=== PATIENT | male | born 1970 | race Caucasian/White ===

== ENCOUNTER 2017-05-22 22:01 | Emergency (ER) | payer BC ==
[~2017-05-22] VITALS: Ht 185.4 cm; Wt 95.3 kg
[2017-05-22 22:20] VITALS: BP 133/87
--- NOTE | 2017-05-22 22:27 | Emergency Room Report ---
History of Present Illness General Chief Complaint: Pain Source: Patient Present Illness HPI This is a 46-year-old male who presents with chief complaint of right wrist injury. He said he was on a ledge and fell on outstretched hand. Complaining of right wrist pain. Occur just prior to arrival. Pain is 10 out of 10. Worse with movement. He's been icing it down. No other injury. No head injury. No loss of consciousness. He is right-hand dominant. Allergies: Uncoded Allergies: SULFA (Allergy, Unknown, 05/22/17) Patient History Past Medical History: see triage record, old chart reviewed Past Surgical History: other Pertinent Family History: none Social History: Denies: drug use Immunizations: other Reviewed Nursing Documentation: PMH: Agreed, PSxH: Agreed Nursing Documentation-PMH Hx Cardiac Problems: No - HIV + Hx Hypertension: Yes Review of Systems Eye: Denies: blurred vision, eye pain ENT: Denies: ear pain, nose congestion, throat swelling Respiratory: Denies: cough, shortness of breath Cardiovascular: Denies: chest pain, palpitations Gastrointestinal: Denies: abdominal pain, diarrhea, nausea, vomiting Musculoskeletal: Reports: joint pain, joint swelling, Denies: back pain Skin: Denies: rash Neurological: Denies: headache, numbness Endocrine: Denies: increased thirst, increased urine Hematologic/Lymphatic: Denies: easy bruising All Other Systems: negative except mentioned in HPI Physical Exam Vital Signs Date Time Temp Pulse Resp B/P Pulse Ox O2 Delivery O2 Flow Rate FiO2 05/22/17 22:09 98.1 86 15 133/87 96 Room Air vitals normal Sp02 EP Interpretation: reviewed, normal General Appearance: well appearing, no apparent distress, alert Head: normocephalic, atraumatic Eyes: bilateral eye EOMI, bilateral eye PERRL ENT: hearing grossly normal, normal pharynx Neck: full range of motion, supple, no meningismus Respiratory: chest non-tender, lungs clear, normal breath sounds Cardiovascular #1: regular rate, rhythm, no murmur Gastrointestinal: normal bowel sounds, non tender, no mass, no organomegaly, no bruit, non-distended Musculoskeletal: back normal, gait/station normal, normal range of motion, other - Right wrist: Tender to palpation over the distal radius. Edema to that area. Radial pulse 2+. Sensation normal. Decreased range of motion secondary to pain. Psychiatric: mood/affect normal Skin: warm/dry Procedures Splinting Splinting : Consent: Verbal Location: Right wrist Splint: sugar-tong Pre-Proc Neuro Vasc Exam: normal Post-Proc Neuro Vasc Exam: normal Patient Tolerated: Well Complications: None Medical Decision Making Diagnostic Impression: Primary Impression: Closed fracture distal radius and ulna Qualified Codes: S52.501A - Unspecified fracture of the lower end of right radius, initial encounter for closed fracture; S52.601A - Unspecified fracture of lower end of right ulna, initial encounter for closed fracture ER Course Patient presents with a distal radius and ulnar fracture. He will probably need surgery. No evidence of compartment syndrome. No evidence of neurovascular injury. We'll discharge home with close orthopedic followup. Other X-Ray Diagnostic Results Other X-Ray Diagnostic Results : X-Ray ordered: Right wrist # of Views/Limited Vs Complete: 4 View Indication: Pain EP Interpretation: Yes Interpretation: other - Comminuted intra-articular fracture of the distal radius. Styloid fracture of the distal ulnar. Impression: Other - distal radius and ulna frx Interpreting ER Provider: Electronically signed by Arnoldo Chirinos MD Last Vital Signs Date Time Temp Pulse Resp B/P Pulse Ox O2 Delivery O2 Flow Rate FiO2 05/22/17 22:09 98.1 86 15 133/87 96 Room Air Status: improved Disposition: HOME, SELF-CARE Condition: Stable Scripts Hydrocodone/Acetaminophen 5-325* (HYDROCODONE/ACETAMINOPHEN 5-325*) 1 Each Tablet 1 TAB ORAL Q6H Y for For Pain, #30 TAB 0 Refills Prov: ARNOLDO CHIRINOS M.D. 05/22/17 Additional Instructions: Call orthopedic tomorrow for followup. Return if symptom worsen. ARNOLDO CHIRINOS M.D. May 22, 2017 22:27
[2017-05-22] MEDS ORDERED: HYDROmorphone 1mg/ml Carpuject IVP ONE (22:30)
[2017-05-22] MEDS ORDERED: HYDROmorphone 1mg/ml Carpuject IM ONE (22:30)
[2017-05-22] MEDS ORDERED: HYDROCODON-ACE1 EA15 ORAL (23:56)
[2017-05-23 00:17] VITALS: BP 135/80
--- NOTE | 2017-05-23 09:34 | Diagnostic Imaging Report ---
History: Pain. Technique: Frontal, lateral, and oblique views of the right wrist are provided. Comparison: No prior study is available for comparison. Findings: Severely comminuted and angulated fracture of the distal radius with intra-articular extension is identified. Transverse fracture of the ulnar styloid with posterior displacement and angulation is also noted. The carpal bones appear grossly intact on the provided radiographs. No dislocation. Surrounding soft tissue swelling is seen. Impression: 1. Comminuted and angulated distal radial fracture with intra-articular extension. 2. Acute fracture of the ulnar styloid with posterior displacement and angulation.
== END 2017-05-23 00:17 | disposition home or self-care (01) ==
LOC: EMR 22:56
DX: S52.501A Unspecified fracture of the lower end of right radius, initial encounter for closed fracture (principal); I10 Essential (primary) hypertension; Z88.2 Allergy status to sulfonamides; W18.30XA Fall on same level, unspecified, initial encounter; Y92.9 Unspecified place or not applicable
CPT/HCPCS: 29125; 73110; 96372; 99283; J1170

== ENCOUNTER 2017-05-25 07:25 | Day surgery (SDC) | payer BC ==
[2017-05-25] VITALS (11 sets, daily range): BP systolic 103–125; BP diastolic 63–92
[~2017-05-25] VITALS: Ht 185.4 cm; Wt 95.3 kg
--- NOTE | 2017-05-25 06:56 | Pre-Procedure Note/Attestation ---
Pre-Procedure Note/Attestation Complete Prior to Procedure Planned Procedure: right Procedure Narrative: rt wrist distal radius fracture Indications for Procedure Pre-Operative Diagnosis: rt wrist ORIF Attestation I attest that I discussed the nature of the procedure; its benefits; risks and complications; and alternatives (and the risks and benefits of such alternatives ), prior to the procedure, with the patient (or the patient's legal patient accounting representative). I attest that, if there was a reasonable possibility of needing a blood transfusion, the patient (or the patient's legal patient accounting representative) was given the [facility] standardized written summary, pursuant to the [place] Blood Safety Act ([place] Health and Safety Code # 1645, as amended). I attest that I re-evaluated the patient just prior to the surgery and that there has been no change in the patient's H&P, except as documented below: NONE ROSALEE MARTINES May 25, 2017 06:56
[~2017-05-25 07:25] MED LIST: HYDROCODON-ACE1 EA15 ORAL; ceFAZolin 1gm in D5W 55ml IVP ONE; celeBREX 200mg Cap **SURGERY PATIENTS ONLY ORAL ONE; oxyCONTIN 20mg tab ORAL ONE
[2017-05-25] MEDS ORDERED: DAPSONE25 MG ORAL (07:54)
[2017-05-25] MEDS ORDERED: triumeq (07:54)
[2017-05-25] MEDS ORDERED: LISINOPRIL40 MG ORAL (07:54)
[2017-05-25] MEDS ORDERED: TAMSULOSIN HCL0.4 MG ORAL (07:54)
[2017-05-25 09:06] LABS: BASOPHILS % (AUTO) 0.6 % (0.0-2.0); EOSINOPHILS % (AUTO) 2.1 % (0.0-3.0); LYMPHOCYTES % (AUTO) 23.8 % (20.0-45.0); MEAN CORPUSCULAR HEMOGLOBIN 34.7 PG (27.0-31.0); MEAN CORPUSCULAR VOLUME 102 FL (80-99); MEAN PLATELET VOLUME 7.6 FL (6.5-10.1); MONOCYTES % (AUTO) 8.2 % (1.0-10.0); NEUTROPHILS % (AUTO) 65.3 % (45.0-75.0); PLATELET COUNT 193 K/UL (150-450); RED BLOOD COUNT 3.77 M/UL (4.70-6.10); RED CELL DISTRIBUTION WIDTH 11.1 % (11.6-14.8); WHITE BLOOD COUNT 5.6 K/UL (4.8-10.8)
[2017-05-25 09:31] LABS: ANION GAP 12 (5-15); CALCIUM 9.2 mg/dL (8.6-10.2); CARBON DIOXIDE 26 mEQ/L (20-30); CHLORIDE 101 mEQ/L (98-107); GLOMERULAR FILTRATION RATE > 60 mL/min (>60); HEMOLYSIS 6; POTASSIUM 4.1 mEQ/L (3.4-4.9); SODIUM 139 mEQ/L (135-145)
[2017-05-25] MEDS ORDERED: Bupivacaine w/Epi 0.5% 30ml Vial INJ ONE (09:37)
[2017-05-25] MEDS ORDERED: Bacitracin 50000 Units Vial ONE (09:37)
[2017-05-25] MEDS ORDERED: Ropivacaine 5mg/ml Vial 20ml INJ ONE ×2 (09:37→11:04)
[2017-05-25] MEDS ORDERED: Propofol 10mg/ml 20ml IV ONE (11:02)
[2017-05-25] MEDS ORDERED: fentaNYL 100 mcg/2 mL IV ONE (11:30)
[2017-05-25] MEDS ORDERED: NS Irrig 1000ml ONE (11:30)
[2017-05-25] MEDS ORDERED: Midazolam 2mg/2ml Inj ONE (11:30)
[2017-05-25] MEDS ORDERED: LR 1000ml ONE (11:30)
[2017-05-25] MEDS ORDERED: Sterile Water Irrig 1000ml IRRIG ONE (11:30)
[2017-05-25] MEDS ORDERED: Ketorolac 30mg Inj ONE (11:30)
--- NOTE | 2017-05-25 12:14 | Anethesia Preoperative Eval ---
Anesthesia Pre-op PMH/ROS General Date of Evaluation: May 25, 2017 Time of Evaluation: 11:02 Anesthesiologist: Luis ASA Score: ASA 3 Mallampati Score Class I : Soft palate, uvula, fauces, pillars visible Class II: Soft palate, uvula, fauces visible Class III: Soft palate, base of uvula visible Class IV: Only hard plate visible Mallampati Classification: Class II Surgeon: Julienne Diagnosis: R wrist Fx Surgical Procedure: ORIF of R wrist Fx Anesthesia History: none Social History: smoking - h/o Family History: no anesthesia problems Allergies: Coded Allergies: SULFA (SULFONAMIDE ANTIBIOTICS) (Unverified Allergy, Unknown, 05/25/17) Uncoded Allergies: SULFA (Allergy, Unknown, 05/22/17) Past Medical History Cardiovascular: Reports: HTN, Denies: CAD, [place], arrhythmia, other, valve dz Pulmonary: Denies: COPD, PARVEEN, asthma, other Gastrointestinal/Genitourinary: Reports: GERD - mild, Denies: CRI, ESRD, other Neurologic/Psychiatric: Denies: CVA, TIA, dementia, depression/anxiety, other Endocrine: Denies: DM, hypothyroidism, other, steroids HEENT: Denies: MI'KMAQ (L), MI'KMAQ (R), cataract (L), cataract (R), glaucoma, other Hematology/Immune: Reports: other - 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 Exam Physician Exam Last Vital Signs Date Time Temp Pulse Resp B/P Pulse Ox O2 Delivery O2 Flow Rate FiO2 05/25/17 08:13 97.7 90 18 125/92 94 Room Air Constitutional: NAD Neurologic: CN 2-12 intact Cardiovascular: RRR, no M/R/G Respiratory: CTA Gastrointestinal: S/NT/ND Airway Exam Mallampati Score: Class II MO: full Neck: flexible ROM: full Teeth: intact Dentures: no lower, no upper Anesthesia Pre-op A/P Labs Hematology Test 05/25/17 09:00 White Blood Count 5.6 K/UL (4.8-10.8) Red Blood Count 3.77 M/UL (4.70-6.10) L Hemoglobin 13.1 G/DL (14.2-18.0) L Hematocrit 38.4 % (42.0-52.0) L Mean Corpuscular Volume 102 FL (80-99) H Mean Corpuscular Hemoglobin 34.7 PG (27.0-31.0) H Mean Corpuscular Hemoglobin Concent 34.0 G/DL (32.0-36.0) Red Cell Distribution Width 11.1 % (11.6-14.8) L Platelet Count 193 K/UL (150-450) Mean Platelet Volume 7.6 FL (6.5-10.1) Neutrophils (%) (Auto) 65.3 % (45.0-75.0) Lymphocytes (%) (Auto) 23.8 % (20.0-45.0) Monocytes (%) (Auto) 8.2 % (1.0-10.0) Eosinophils (%) (Auto) 2.1 % (0.0-3.0) Basophils (%) (Auto) 0.6 % (0.0-2.0) Chemistry Test 05/25/17 09:00 Sodium Level 139 mEQ/L (135-145) Potassium Level 4.1 mEQ/L (3.4-4.9) Chloride Level 101 mEQ/L (98-107) Carbon Dioxide Level 26 mEQ/L (20-30) Anion Gap 12 (5-15) Blood Urea Nitrogen 12 mg/dL (7-23) Creatinine 1.0 mg/dL (0.7-1.2) Estimat Glomerular Filtration Rate > 60 mL/min (>60) Glucose Level 101 mg/dL (74-106) Calcium Level 9.2 mg/dL (8.6-10.2) Studies Pre-op Studies: EKG - NSR Risk Assessment & Plan Assessment: ASA 2 Plan: GA with LMA R axillary block for p/op pain control Status Change Before Surgery: No Pre-Antibiotics Drug: Ancef 2gr. Given Within 1 Hr of Incision: Yes Time Given: 11:56 JACKIE SCHILLING M.D. May 25, 2017 12:14
[2017-05-25] MEDS ORDERED: Hydromorphone 0.5mg/0.5ml inj IVP PRN (12:15)
[2017-05-25] MEDS ORDERED: DiphenhydrAMINE 50mg/ml Inj IVP PRN (12:15)
[2017-05-25] MEDS ORDERED: LR 1000ml 1,000 ML IVLG SCH (12:15)
[2017-05-25] MEDS ORDERED: Ketorolac 30mg Inj IV PRN (12:15)
[2017-05-25] MEDS ORDERED: Meperidine 25mg/0.5ml Inj (FOR RIGORS ONLY) IV PRN (12:15)
--- NOTE | 2017-05-25 13:50 | Brief Operative Note ---
Immediate Post Operative Note Operative Note Chief Complaint: rt wrist pain Pre-op Diagnosis: rt wrist fracture Procedure: rt wrist ORIF Post-op Diagnosis: same as pre-op Findings: consistent w/pre-op dx studies Surgeon: Ganjianpour. paulino Veneer Patcher: deirdre rojo Anesthesiologist: md clifford Anesthesia: general, regional Specimen: none Complications: none Condition: stable Estimated Blood Loss: minimal Drains: none Implant(s) used?: Yes - Rincon plate and screws CINTHIA ROJO May 25, 2017 13:50
--- NOTE | 2017-05-25 14:03 | Immediate Post-Op Evaluation ---
Immediate Post-Op Evalulation Immediate Post-Op Evalulation Procedure: R wrist Fx ORIF Date of Evaluation: May 25, 2017 Time of Evaluation: 14:02 IV Fluids: 1200 Blood Products: none Estimated Blood Loss: min Urinary Output: none Blood Pressure Systolic: 119 Blood Pressure Diastolic: 72 Pulse Rate: 108 Respiratory Rate: 22 O2 Sat by Pulse Oximetry: 98 Temperature (Fahrenheit): 98.7 Pain Score (1-10): 2 Nausea: No Vomiting: No Complications none Patient Status: reacts, patent, none Hydration Status: adequate JACKIE SCHILLING M.D. May 25, 2017 14:03
--- NOTE | 2017-05-25 14:36 | 48 Hour Post Anesthesia Eval ---
Post Anesthesia Evaluation Procedure: R wrist Fx ORIF Date of Evaluation: May 25, 2017 Time of Evaluation: 14:34 Blood Pressure Systolic: 118 0: 75 Pulse Rate: 86 Respiratory Rate: 20 Temperature (Fahrenheit): 97.6 O2 Sat by Pulse Oximetry: 99 Airway: patent Nausea: No Vomiting: No Pain Intensity: 2 Hydration Status: adequate Cardiopulmonary Status: stable Mental Status/LOC: patient returned to baseline Follow-up Care/Observations: n/a Post-Anesthesia Complications: none Follow-up care needed: ready to discharge JACKIE SCHILLING M.D. May 25, 2017 14:36
--- NOTE | 2017-05-25 15:11 | Diagnostic Imaging Report ---
Indications: Open reduction and internal fixation of distal right radial fracture Technique: Surgery including fluoroscopy performed by Dr. Tamayo. Portable intraoperative AP and lateral images of the right wrist obtained Findings: Comparison: 05/22/17 Fixation plate has been placed across the volar margin of fracture of the distal radius. Main fracture fragments are held in anatomic alignment IMPRESSION: ORIF distal right radial fracture
[2017-05-25] MEDS ORDERED: Norco 5mg/325mg tab ORAL PRN (16:01)
[2017-05-25] MEDS ORDERED: D5 1/2NS 1,000 ML IV SCH (16:01)
[2017-05-25] MEDS ORDERED: HYDROmorphone 1mg/ml Carpuject SUBQ PRN (16:01)
[2017-05-25] MEDS ORDERED: Tylenol #3 tab (300mg/30mg) ORAL PRN (16:01)
--- NOTE | 2017-05-25 20:30 | Operative Note - Dictated ---
DATE OF OPERATION: 05/25/2017 PREOPERATIVE DIAGNOSIS: Right distal radius fracture with intra-articular extension with severe comminution and displacement and shortening. POSTOPERATIVE DIAGNOSIS: Right distal radius fracture with intra-articular extension with severe comminution and displacement and shortening. PROCEDURE: Right distal radius fracture, open reduction and internal fixation of multiple intra-articular fragments on anterior, posterior as well as sagittal plane with volar plating technique. SURGEON: Jonn Robins M.D. PENOLOGY PROFESSOR: Sena Vaca PA-C. ANESTHESIOLOGIST: Pepe Smith M.D. ANESTHESIA: General LMA anesthesia combined with axillary nerve block for postoperative pain management. EBL: Less than 20 mL. COMPLICATIONS: None. TOURNIQUET TIME: 90 minutes. BRIEF HISTORY: The patient is a pleasant 46-year-old gentleman, who sustained a right distal radius fracture with severe comminution. He was evaluated in the office and it was noted that there is a radiostyloid fracture as well as sagittal fracture as well as loss of volar tilt and shortening. After full discussion of risks and benefits of the surgery and complications associated with surgery including infection, bleeding, neurovascular complication, possibility of malunion, possible nonunion, possible need for further surgery, possibly osteotomy down the line, possibly hardware removal as well as loss of range of motion, stiffness, and other complications that may arise down the line, he opted for surgical treatment as described above. OPERATIVE PROCEDURE: The patient was brought to the operating room table and was placed supine. All pressure points were well padded. General LMA anesthesia was induced and actually, nerve block was performed. The right arm was prepped and draped in usual sterile fashion. The right arm was exsanguinated. Tourniquet was inflated to 275 mmHg. A standard volar portion to the wrist was undertaken. The incision was taken through the subcutaneous tissue. The internervous plane was developed and appropriate retractors were placed in. The pronator quadratus was identified and was released. The fracture was identified. There was severe comminution at the metaphyseal region of the fracture. There was also a radiostyloid fracture. On lateral view, there was a slight sagittal displacement dorsally. At this point, using gentle maneuvering and gentle traction and using elevators, the radiostyloid was reduced near anatomically. Two K-wires were placed to temporarily stabilize the radiostyloid. The rest of the articular fragment appeared to be reduced very well and was held with a K-wires. At this point, a volar plate was applied and position of the plate was checked on the image on AP and lateral. At this point, the volar plate was fixed onto the distal fragment using two screws in the central portion. Once this was completed, the position of plate appeared to be good and in good position. Subsequently, a radiostyloid screw was then placed in to suck in the radiostyloid component. Once this was completed, a screw was placed in the oblong hole more distally, initially and was held loosely. Subsequently using reduction clamp, the distal radius was then slightly elongated to makeup the comminution and shortening. This provided good length under distal radius. The radial inclination was checked and appeared to be about 12 to 15 degrees. Although, the radial inclination was slightly shortened, it appeared to be acceptable as a more lengthening of the radial inclination caught displacement radiostyloid. At this point, the oblong screw was then tightened down without any complications. A secondary bicortical screw was then placed in more proximally and then a third bicortical locking screw was placed at the most proximal screw hole. At this point, the position was checked and the length was excellent and the length appeared to be longer than ulna by about 2 mm. The radiostyloid appeared to be reduced on the articular surface anatomically. The K-wires were removed and there was no change in the reduction of the radiostyloid fragment and appeared to be stable. At this point, a fourth distal radius screw was then placed in more ulnarly to fix the entire distal radius. At this point, the position was checked on AP and lateral and all screws were in excellent position. The radiostyloid fragment was reduced anatomically. The radial inclination was acceptable. There is no articular displacement. At this point, the length appeared to be excellent and volar tilt was recreated. At this point, all wounds were thoroughly irrigated using copious amount of fluid. The subcutaneous tissue was closed using 2-0 Vicryl suture and skin was closed using 3-0 Monocryl suture. Sterile dressing was applied and a sugar-tong splint was applied. The patient was taken to recovery room in stable condition. All lap counts and instrument counts were correct. Jonn Wes Robins DR: OSMEL JOB#: [id number] CC:
[2017-05-25] MEDS ORDERED: IBUPROFEN600 MG ORAL (22:39)
--- NOTE | 2017-05-26 16:15 | Cardiology Report ---
APPROVED REPORT EKG Measurement Heart [id number] Normal sinus rhythm Normal ECG
== END 2017-05-25 15:25 | disposition home or self-care (01) ==
LOC: SUR 07:25
DX: S52.531A Colles' fracture of right radius, initial encounter for closed fracture (principal); X58.XXXA Exposure to other specified factors, initial encounter; Y92.89 Other specified places as the place of occurrence of the external cause; Y99.9 Unspecified external cause status; I10 Essential (primary) hypertension; K21.9 Gastro-esophageal reflux disease without esophagitis; Z90.49 Acquired absence of other specified parts of digestive tract; Z88.2 Allergy status to sulfonamides
CPT/HCPCS: 25609; 36415; 73100; 76001; 80048; 85025; 93005; C1713; J0690; J1885; J2250; J2704; J2795; J3010; J7120; 94003; 94150

== ENCOUNTER 2017-05-25 22:17 | Emergency (ER) | payer BC ==
[~2017-05-25] VITALS: Ht 185.4 cm; Wt 95.3 kg
[~2017-05-25 22:17] MED LIST changes: +DAPSONE25 MG ORAL; +LISINOPRIL40 MG ORAL; +TAMSULOSIN HCL0.4 MG ORAL; -ceFAZolin 1gm in D5W 55ml IVP ONE; -celeBREX 200mg Cap **SURGERY PATIENTS ONLY ORAL ONE; -oxyCONTIN 20mg tab ORAL ONE; +triumeq
[2017-05-25 22:32] VITALS: BP 137/82
[2017-05-25] MEDS ORDERED: IBUPROFEN600 MG ORAL (22:39)
[2017-05-25] MEDS ORDERED: Ketorolac 60mg Inj IM ONE (22:45)
[2017-05-25 22:55] VITALS: BP 137/82
--- NOTE | 2017-05-26 04:46 | Emergency Room Report ---
History of Present Illness General Chief Complaint: Wound Recheck/Suture Removal Source: Patient Present Illness HPI Patient is a 46-year-old male who presented after increased pain to his right upper extremity. Patient had recently had surgery on his wrist. The patient had the distal radius fracture. The patient had ORIF. Patient reported having increased swelling as well as pain. The patient had surgery by Dr. Robins. He is had been in a sugar tong splint Allergies: Coded Allergies: SULFA (SULFONAMIDE ANTIBIOTICS) (Unverified Allergy, Unknown, 05/25/17) Uncoded Allergies: SULFA (Allergy, Unknown, 05/22/17) Patient History Past Medical History: see triage record Reviewed Nursing Documentation: PMH: Agreed, PSxH: Agreed Nursing Documentation-PMH Past Medical History: No History, Except For Hx Cardiac Problems: No - HIV + Hx Hypertension: Yes Hx Cancer: No Hx Gastrointestinal Problems: No Hx Neurological Problems: Yes Hx Meningitis: Yes - 2O YRS AGO Review of Systems All Other Systems: negative except mentioned in HPI Physical Exam Vital Signs Date Time Temp Pulse Resp B/P Pulse Ox O2 Delivery O2 Flow Rate FiO2 05/25/17 22:22 98.2 107 16 137/82 100 Room Air General Appearance: well appearing, no apparent distress, alert, GCS 15 Head: normocephalic, atraumatic ENT: hearing grossly normal, normal voice Neck: full range of motion, supple Respiratory: no respiratory distress, speaking full sentences Musculoskeletal: no calf tenderness, swelling, other - splint loose, decreased hand, able to move digits in extension Neurologic: oriented x3, responsive, normal gait Psychiatric: mood/affect normal Skin: no rash Medical Decision Making Diagnostic Impression: Primary Impression: Post-op pain ER Course Patient presented for pain. Differential diagnoses included wasn't limited to compartment syndrome, the median nerve injury, cellulitis, among others. The patient was noted to have a benign exam. Patient's was loosened. He was advised to elevate his arm and to follow up with Dr. Robins tomorrow. The patient given Toradol for pain Last Vital Signs Date Time Temp Pulse Resp B/P Pulse Ox O2 Delivery O2 Flow Rate FiO2 05/25/17 22:55 98.2 16 137/82 100 Room Air 05/25/17 22:22 107 Status: improved Disposition: HOME, SELF-CARE Condition: Stable Scripts Ibuprofen* (MOTRIN*) 600 Mg Tablet 600 MG ORAL Q8H Y for For Pain, #30 TAB 0 Refills Prov: Richard Goyal 05/25/17 Referrals: NON PHYSICIAN (PCP) Patient Instructions: Wound Check Richard Goyal May 26, 2017 04:46
== END 2017-05-25 23:00 | disposition home or self-care (01) ==
LOC: EMR 22:37
DX: G89.18 Other acute postprocedural pain (principal); M79.601 Pain in right arm; I10 Essential (primary) hypertension; Z88.2 Allergy status to sulfonamides
CPT/HCPCS: 96372; 99283